=== PATIENT | female | born 1955 | race American Indian/Alaskan Native ===

== ENCOUNTER 2017-07-10 19:26 | Emergency (ER) | payer MEDICAID, MEDICARE ==
[2017-07-10 19:43] VITALS: BP 112/56
[2017-07-10 21:02] LABS: Basophils % (Auto) 0.3 % (0.0-1.8); Eosinophils # (Auto) 0.1 K/mm3 (0.0-0.4); Eosinophils % (Auto) 0.8 % (0.0-4.3); Hematocrit 38.1 % (30.3-42.9); Hemoglobin 12.6 gm/dl (10.1-14.3); Lymphocytes # (Auto) 2.1 K/mm3 (1.2-5.4); Lymphocytes % (Auto) 21.9 % (13.4-35.0); Mean Corpuscular HGB Conc 33 % (30-34); Mean Corpuscular Hemoglobin 30 pg (28-32); Mean Corpuscular Volume 91 fl (79-97); Monocytes # (Auto) 0.7 K/mm3 (0.0-0.8); Monocytes % (Auto) 7.1 % (0.0-7.3); Platelet Count 284 K/mm3 (140-440); Red Blood Count 4.21 M/mm3 (3.65-5.03)
[2017-07-10 21:06] LABS: Bilirubin,Urine NEG (Negative); Blood,Urine NEG (Negative); Color,Urine Yellow (Yellow); Protein,Urine <15 mg/dL mg/dL (Negative); Urobilinogen,Urine < 2.0 mg/dL (<2.0)
[2017-07-10 21:14] LABS: Amphetamine Screen,Urine PRESUMPTIVE NEGATIVE; Benzodiazepines Screen,Urine PRESUMPTIVE NEGATIVE; Cannabinoid Screen,Urine PRESUMPTIVE NEGATIVE; Cocaine Screen,Urine PRESUMPTIVE NEGATIVE; Methadone Screen,Urine PRESUMPTIVE NEGATIVE; Opiate Screen,Urine PRESUMPTIVE NEGATIVE
[2017-07-10 21:20] LABS: Albumin 4.1 g/dL (3.9-5); Calcium 9.5 mg/dL (8.4-10.2)
== END 2017-07-10 22:51 | disposition left against medical advice (07) ==
LOC: ED 19:26
DX: Z76.0 Encounter for issue of repeat prescription (principal)
CPT/HCPCS: 36415; 80053; 80178; 80307; 81001; 84443; 85025; G0480; 80320

== ENCOUNTER 2017-07-28 14:09 | Observation (INO) | payer MEDICARE ==
[2017-07-28 14:38] LABS: Hematocrit 37.7 % (30.3-42.9); Mean Corpuscular HGB Conc 35 % (30-34); Mean Corpuscular Hemoglobin 31 pg (28-32); Mean Corpuscular Volume 90 fl (79-97); Platelet Count 259 K/mm3 (140-440); Red Blood Count 4.17 M/mm3 (3.65-5.03); Red Cell Distribution Width 15.7 % (13.2-15.2)
[2017-07-28 14:58] LABS: Calcium 9.5 mg/dL (8.4-10.2)
[2017-07-28] MEDS ORDERED: NACL 0.9% 1000 ML 1,000 ML IV ONE (16:50)
--- NOTE | 2017-07-28 18:18 | Cat Scan Report ---
FINAL REPORT PROCEDURE: CT HEAD/BRAIN WO CON TECHNIQUE: Computerized tomography of the head was performed without contrast material. HISTORY: syncope COMPARISON: No prior studies are available for comparison. FINDINGS: No CT evidence of intracranial mass, hemorrhage, acute territorial infarction, or hydrocephalus. The intracranial arteries are symmetric in density. Calvarium is intact. Visualized paranasal sinuses and mastoids are aerated. IMPRESSION: No CT evidence of acute abnormality
[2017-07-28 20:02] LABS: Bacteria,Urine 2+ /HPF (Negative); Bilirubin,Urine NEG (Negative); Blood,Urine NEG (Negative); Color,Urine Yellow (Yellow); Hyaline Casts,Urine 6 /LPF; Mucus,Urine FEW /HPF; Protein,Urine <15 mg/dL mg/dL (Negative); Urobilinogen,Urine < 2.0 mg/dL (<2.0)
[2017-07-28 20:28] LABS: Amphetamine Screen,Urine PRESUMPTIVE NEGATIVE; Benzodiazepines Screen,Urine PRESUMPTIVE NEGATIVE; Cannabinoid Screen,Urine PRESUMPTIVE NEGATIVE; Cocaine Screen,Urine PRESUMPTIVE NEGATIVE; Methadone Screen,Urine PRESUMPTIVE NEGATIVE; Opiate Screen,Urine PRESUMPTIVE NEGATIVE
--- NOTE | 2017-07-28 20:45 | Emergency Department Report ---
ED Syncope HPI - General Chief Complaint: Syncope Stated Complaint: SYNCOPE Time Seen by Provider: 07/28/17 16:26 Source: patient Exam Limitations: no limitations - History of Present Illness Initial Comments: 61-year-old female with a past medical history diabetes, hypertension, anxiety, schizophrenia, and bipolar disorder presents to the hospital complaints of syncopal episode prior to arrival. Patient states she was hungry and did not eat all day. She was in [facility] about to get a meal when she woke up with bystanders surrounding her. She denies any preceding symptoms. She denies headache, blurred vision, chest pain, shortness of breath, abdominal pain, melena, hematochezia, diarrhea, fever, shortness of breath. Accu-Chek was and 112 as per EMS on the scene. Patient denies any symptoms currently. - Related Data Allergies/Adverse Reactions: Allergies No Known Allergies Allergy (Unverified 07/10/17 19:38) ED Review of Systems ROS: Stated complaint: SYNCOPE Other details as noted in HPI Comment: All other systems reviewed and negative ED Past Medical Hx - Past Medical History Previous Medical History?: Yes Hx Hypertension: Yes Hx Diabetes: Yes Hx Psychiatric Treatment: Yes (anxiety, schizophrenia, bipolar) - Surgical History Past Surgical History?: Yes Additional Surgical History: Hysterectomy - Social History Smoking Status: Never Smoker Substance Use Type: None ED Physical Exam - General Limitations: No Limitations - Other Other exam information: General: No limitations, patient is alert in no acute distress Head exam: Atraumatic, normocephalic Eyes exam: Normal appearance, pupils equal reactive to light, extraocular movements intact ENT: Moist mucous membrane, normal oropharynx Neck exam: Normal inspection, full range of motion, no meningismus nontender Respiratory exam: Clear to auscultation bilateral, no wheezes, rales, crackles Cardiovascular: Normal rate and rhythm, normal heart sounds Abdomen: Soft, nondistended, and nontender, with normal bowel sounds, no rebound, or guarding Extremity: Full range of motion normal inspection no deformity Back: Normal Inspection, full range of motion, no tenderness Neurologic: Alert, oriented x3, cranial nerves intact, no motor or sensory deficit, NIH stroke scale 0 Psychiatric: normal affect, normal mood Skin: Warm, dry, intact ED Course Vital Signs 07/28/17 07/28/17 07/28/17 14:10 16:39 16:45 Temperature 98.6 F Pulse Rate 46 L Respiratory 16 14 19 Rate Blood Pressure 111/57 O2 Sat by Pulse 98 99 100 Oximetry 07/28/17 07/28/17 07/28/17 17:00 17:15 17:31 Temperature Pulse Rate 49 L 48 L 54 L Respiratory 8 L 10 L 17 Rate Blood Pressure 131/52 131/52 147/61 O2 Sat by Pulse 100 100 100 Oximetry 07/28/17 07/28/17 07/28/17 17:45 18:01 18:15 Temperature Pulse Rate 53 L 59 L Respiratory 15 19 Rate Blood Pressure 121/47 110/77 110/77 O2 Sat by Pulse 100 100 100 Oximetry 07/28/17 07/28/17 07/28/17 18:31 18:45 19:01 Temperature Pulse Rate 52 L 52 L 51 L Respiratory 15 12 9 L Rate Blood Pressure 110/77 110/77 110/77 O2 Sat by Pulse 100 100 100 Oximetry - Reevaluation(s) Reevaluation #1: 07/28/17 20:48 Orthostatics were positive with heart rate increased by 20 points with standing and patient received 1 L normal saline ED Medical Decision Making - Lab Data Result diagrams: 07/28/17 14:26 07/28/17 14:26 Lab Results 07/28/17 07/28/17 07/28/17 Range/Units 14:26 14:26 14:26 WBC 9.0 (4.5-11.0) K/mm3 RBC 4.17 (3.65-5.03) M/mm3 Hgb 13.0 (10.1-14.3) gm/dl Hct 37.7 (30.3-42.9) % MCV 90 (79-97) fl MCH 31 (28-32) pg MCHC 35 H (30-34) % RDW 15.7 H (13.2-15.2) % Plt Count 259 (140-440) K/mm3 Sodium 135 L (137-145) mmol/L Potassium 5.3 H (3.6-5.0) mmol/L Chloride 100.1 (98-107) mmol/L Carbon Dioxide 18 L (22-30) mmol/L Anion Gap 22 mmol/L BUN 16 (7-17) mg/dL Creatinine 1.3 H (0.7-1.2) mg/dL Estimated GFR 51 ml/min BUN/Creatinine Ratio 12 % Glucose 109 H (65-100) mg/dL Calcium 9.5 (8.4-10.2) mg/dL Troponin T (0.00-0.029) ng/mL Urine Color (Yellow) Urine Turbidity (Clear) Urine pH (5.0-7.0) Ur Specific [place] (1.003-1.030) Urine Protein (Negative) mg/dL Urine Glucose (UA) (Negative) mg/dL Urine Ketones (Negative) mg/dL Urine Blood (Negative) Urine Nitrite (Negative) Urine Bilirubin (Negative) Urine Urobilinogen (<2.0) mg/dL Ur Leukocyte Esterase (Negative) Urine WBC (Auto) (0.0-6.0) /HPF Urine RBC (Auto) (0.0-6.0) /HPF U Epithel Cells (Auto) (0-13.0) /HPF Urine Bacteria (Auto) (Negative) /HPF Hyaline Casts /LPF Urine Mucus /HPF Urine Opiates Screen Urine Methadone Screen Ur Barbiturates Screen Ur Phencyclidine Scrn Ur Amphetamines Screen U Benzodiazepines Scrn [place] 0.4 (0.0-1.2) mmol/L Urine Cocaine Screen U Marijuana (THC) Screen Drugs of Abuse Note 07/28/17 07/28/17 07/28/17 Range/Units 14:26 Unknown Unknown WBC (4.5-11.0) K/mm3 RBC (3.65-5.03) M/mm3 Hgb (10.1-14.3) gm/dl Hct (30.3-42.9) % MCV (79-97) fl MCH (28-32) pg MCHC (30-34) % RDW (13.2-15.2) % Plt Count (140-440) K/mm3 Sodium (137-145) mmol/L Potassium (3.6-5.0) mmol/L Chloride (98-107) mmol/L Carbon Dioxide (22-30) mmol/L Anion Gap mmol/L BUN (7-17) mg/dL Creatinine (0.7-1.2) mg/dL Estimated GFR ml/min BUN/Creatinine Ratio % Glucose (65-100) mg/dL Calcium (8.4-10.2) mg/dL Troponin T < 0.010 (0.00-0.029) ng/mL Urine Color Yellow (Yellow) Urine Turbidity Clear (Clear) Urine pH 6.0 (5.0-7.0) Ur Specific [place] 1.012 (1.003-1.030) Urine Protein <15 mg/dl (Negative) mg/dL Urine Glucose (UA) Neg (Negative) mg/dL Urine Ketones Tr (Negative) mg/dL Urine Blood Neg (Negative) Urine Nitrite Neg (Negative) Urine Bilirubin Neg (Negative) Urine Urobilinogen < 2.0 (<2.0) mg/dL Ur Leukocyte Esterase Tr (Negative) Urine WBC (Auto) 12.0 H (0.0-6.0) /HPF Urine RBC (Auto) 3.0 (0.0-6.0) /HPF U Epithel Cells (Auto) 3.0 (0-13.0) /HPF Urine Bacteria (Auto) 2+ (Negative) /HPF Hyaline Casts 6 /LPF Urine Mucus Few /HPF Urine Opiates Screen Presumptive negative Urine Methadone Screen Presumptive negative Ur Barbiturates Screen Presumptive negative Ur Phencyclidine Scrn Presumptive negative Ur Amphetamines Screen Presumptive negative U Benzodiazepines Scrn Presumptive negative [place] (0.0-1.2) mmol/L Urine Cocaine Screen Presumptive negative U Marijuana (THC) Screen Presumptive negative Drugs of Abuse Note Disclamer - EKG Data -: EKG Interpreted by Me EKG shows normal: sinus rhythm, axis (qrs 53), QRS complexes (84), ST-T waves ( no stemi/t inv) Rate: bradycardia (47) - Radiology Data Radiology results: report reviewed CT head: No acute findings - Medical Decision Making Syncope Mild orthostasis Patient received 1 L normal saline Resting bradycardia Given history and cardiac risk factors patient be admitted to the hospital for further evaluation - Differential Diagnosis vasovagal, dehydration, arrhythmia, intracranial abnormality Critical Care Time: No Critical care attestation.: If time is entered above; I have spent that time in minutes in the direct care of this critically ill patient, excluding procedure time. ED Disposition Clinical Impression: Syncope, Diabetes, Schizophrenia, Bipolar disorder Disposition: OP ADMIT IP TO THIS HOSP Is pt being admited?: Yes Condition: Stable Time of Disposition: 20:50 (Hospitalist/Neelima) - Assessment Assessment Interval: Baseline - Level of Consciousness 1a. Level of Consciousness: alert - LOC Questions 1b. LOC Questions: answers correctly - LOC Command 1c. LOC Commands: performs tasks correctly - Best Gaze 2. Best Gaze: normal - Visual 3. Visual: no visual loss - Facial Palsy 4. Facial Palsy: normal symmetrical movement - Motor Arm 5b. Motor Arm Right: no drift 5a. Motor Arm Left: no drift - Motor Leg 6a. Motor Leg Left: no drift 6b. Motor Leg Right: no drift - Limb Ataxia 7. Limb Ataxia: absent - Sensory 8. Sensory: normal - Best Language 9. Best Language: no aphasia - Dysarthria 10. Dysarthria: normal - Extinction and Inattention 11. Extinction/Inattention: no abnormality - Scoring Total Score: 0 Stroke Severity: No Stroke Symptoms
[2017-07-28] MEDS ORDERED: ZOFRAN IV PRN (23:01)
[2017-07-28] MEDS ORDERED: SODIUM CHLORIDE FLUSH SYRINGE 10 ML IV PRN (23:01)
[2017-07-28] MEDS ORDERED: D50W (25GM) Syringe IV PRN (23:01)
[2017-07-28] MEDS ORDERED: TYLENOL PO PRN (23:01)
--- NOTE | 2017-07-28 23:08 | History and Physical Report ---
History of Present Illness Date of examination: 07/28/17 History of present illness: Reason 11-year-old history of hypertension, diabetes, schizophrenia, anxiety, bipolar comes emergency room because she was in [facility] and she had a syncopal episode, it's unclear how long she passed out for. Patient stated that she had not eaten anything all day and around noontime she went to [facility] to get something to eat. Blood sugar on scene was normal Review of systems Constitutional: no weight loss, chills Ears, eyes, nose, mouth and throat: no nasal congestion, no nasal discharge, no sinus pressure, no vision change, no red eye. Neck: No neck pain or rigidity. Cardiovascular: no chest pain, palpitations Respiratory: No cough, shortness of breath Gastrointestinal: no abdominal pain, hematochezia Genitourinary : no dysuria, frequency , no hematuria Musculoskeletal: no joint swelling or muscle ache Integumentary: no rash, no pruritis Neurological: no parathesias, no numbness, no focal weakness Endocrine: no cold or heat intolerance, no polyuria or polydipsia Hematologic/Lymphatic: no easy bruising, no easy bleeding, no gland swelling Allergic/Immunologic: no urticaria, no angioedema. PAST MEDICAL HISTORY: hypertension, diabetes, schizophrenia, anxiety, bipolar PAST SURGICAL HISTORY: Hernia repair, hysterectomy SOCIAL HISTORY: Denies alcohol, tobacco, drugs FAMILY HISTORY: Hypertension Medications and Allergies Allergies Allergy/AdvReac Type Severity Reaction Status Date / Time No Known Allergies Allergy Unverified 07/10/17 19:38 Exam - Physical Exam Narrative exam: Gen. appearance: Patient lying in bed, no apparent distress HEENT: Normocephalic, atraumatic, pupils equally round and reactive to light, extraocular movement intact, and no sclericterus,. No JVD or thyromegaly or nodule,neck supple, no carotid bruit ,mucous membranes moist, no exudate or erythema Heart: S1, S2, regular rate and rhythm Lungs: Clear to auscultation bilaterally, breathing comfortable Abdomen: Positive bowel sounds, nontender, nondistended, no organomegaly Extremity: No edema, cyanosis, clubbing Skin: No rash, nodules, warm, dry Neuro: Oriented 3, cranial nerves II-12 intact, speech is fluent, motor and sensory intact - Constitutional Vitals: Temp Pulse Resp BP Pulse Ox 98.6 F 57 L 11 L 118/46 100 07/28/17 14:10 07/28/17 22:45 07/28/17 22:45 07/28/17 22:45 07/28/17 22:45 Results - Labs CBC & Chem 7: 07/28/17 14:26 07/28/17 14:26 Labs: Abnormal lab results 07/28/17 07/28/17 07/28/17 Range/Units 14:26 14:26 Unknown MCHC 35 H (30-34) % RDW 15.7 H (13.2-15.2) % Sodium 135 L (137-145) mmol/L Potassium 5.3 H (3.6-5.0) mmol/L Carbon Dioxide 18 L (22-30) mmol/L Creatinine 1.3 H (0.7-1.2) mg/dL Glucose 109 H (65-100) mg/dL Urine WBC (Auto) 12.0 H (0.0-6.0) /HPF - Imaging and Cardiology EKG: image reviewed CT Scan - head: report reviewed Assessment and Plan Assessment Syncopal secondary to prolonged fasting Dehydration UTI hypertension diabetes schizophrenia anxiety bipolar Plan Admit medicine Check cardiac enzymes, orthostatics Start IV fluids, appropriate outpatient medications DVT prophylaxis
[2017-07-29] MEDS ORDERED: ROCEPHIN/NS 1 GM/50 ML 1 GM/50 ML BAG IV SCH (03:27)
[2017-07-29] MEDS ORDERED: D50W (25GM) Syringe IV PRN (03:35)
[2017-07-29] MEDS ORDERED: NACL 0.9% 1000 ML 1,000 ML IV SCH (04:00)
[2017-07-29] MEDS: cefTRIAXone 1 GM in NACL 0.9% 20 ML IV SCH (05:50)
[2017-07-29 09:53] LABS: Basophils % (Auto) 0.3 % (0.0-1.8); Eosinophils # (Auto) 0.1 K/mm3 (0.0-0.4); Eosinophils % (Auto) 0.7 % (0.0-4.3); Hematocrit 35.1 % (30.3-42.9); Hemoglobin 11.3 gm/dl (10.1-14.3); Lymphocytes # (Auto) 2.3 K/mm3 (1.2-5.4); Lymphocytes % (Auto) 23.4 % (13.4-35.0); Mean Corpuscular HGB Conc 32 % (30-34); Mean Corpuscular Hemoglobin 30 pg (28-32); Mean Corpuscular Volume 92 fl (79-97); Monocytes # (Auto) 0.7 K/mm3 (0.0-0.8); Monocytes % (Auto) 7.3 % (0.0-7.3); Platelet Count 271 K/mm3 (140-440); Red Cell Distribution Width 15.8 % (13.2-15.2)
[2017-07-29 10:11] LABS: BUN/Creatinine Ratio 14; Blood Urea Nitrogen 14 mg/dL (7-17); Calcium 9.3 mg/dL (8.4-10.2); Hemolysis Index 8
[2017-07-29] MEDS: LOVENOX SUB-Q SCH (11:10)
[2017-07-29] MEDS: SODIUM CHLORIDE FLUSH SYRINGE 10 ML IV SCH ×2 (11:11→22:59)
--- NOTE | 2017-07-29 21:43 | Progress Note ---
Assessment and Plan Assessment and plan: Patient is a 61 yo woman with a history of dm2, hypertension, schizophrenia and bipolar disorder who presented to ED after syncopal episode at [facility]. She was found to have heart in the 40s. CT head unremarkable, UA indicative of UTI, negative UDS and negative orthostasis. EKG showing sinus bradycardia and no overnight cardiac event. Heart rate is improving. Home medications not available , pt states daughter will bring in her medication this evening. ECHO pending. -Syncopal episode related to bradycardia vs vasovagal vs autonomic dysfunction vs medication related: need home meds, continue telemetry -Bradycardia, possible medication related -Hypertension, borderline low: need home medications -UTI: continue iv rocephin, urine culture not collected -DM type 2: ssi, ada diet -DVT prophylaxis: sq lovenox Disposition: anticipate discharge tomorrow if ECHO ok. History Interval history: Patient was seen and examined. Follow-up on current diagnosis of syncope. Overnight uneventful. Patient denies any chest pain, shortness breath, nausea/ vomiting or severe headaches. Imaging, nursing note, chart, labs and old chart reviewed. Discussed with patient. Hospitalist Physical - Physical exam Narrative exam: GEN: WDWN, NAD, Awake, Alert, Orientated HEENT: NCAT, EOMI, PERRL, OP Clear NECK: supple, no adenopathy, no thyromegaly, no JVD CVS/HEART: Regular, normal S1S2, pulses present bilaterally CHEST/LUNGS: CTA B, Symmetrical chest expansion, good air entry bilaterally GI/Abdomen: soft, NTND, good bowel sounds, no guarding or rebound /Bladder: no suprapubic tenderness, no CVA or paraspinal tenderness EXT/Skin: no c/c/e, no obvious rash MSK: FROM x 4 Neuro: CN 2-12 grossly intact, no new focal deficits Psych: calm - Constitutional Vitals: Temp Pulse Resp BP Pulse Ox 98.8 F 64 20 149/63 99 07/29/17 20:12 07/29/17 20:12 07/29/17 20:12 07/29/17 20:12 07/29/17 20:12 Results - Labs CBC & Chem 7: 07/29/17 09:14 07/29/17 09:14 Labs: Laboratory Last Values WBC 9.8 K/mm3 (4.5-11.0) 07/29/17 09:14 RBC 3.80 M/mm3 (3.65-5.03) 07/29/17 09:14 Hgb 11.3 gm/dl (10.1-14.3) 07/29/17 09:14 Hct 35.1 % (30.3-42.9) 07/29/17 09:14 MCV 92 fl (79-97) 07/29/17 09:14 MCH 30 pg (28-32) 07/29/17 09:14 MCHC 32 % (30-34) 07/29/17 09:14 RDW 15.8 % (13.2-15.2) H 07/29/17 09:14 Plt Count 271 K/mm3 (140-440) 07/29/17 09:14 Lymph % (Auto) 23.4 % (13.4-35.0) 07/29/17 09:14 [place] % (Auto) 7.3 % (0.0-7.3) 07/29/17 09:14 Eos % (Auto) 0.7 % (0.0-4.3) 07/29/17 09:14 Baso % (Auto) 0.3 % (0.0-1.8) 07/29/17 09:14 Lymph # 2.3 K/mm3 (1.2-5.4) 07/29/17 09:14 [place] # 0.7 K/mm3 (0.0-0.8) 07/29/17 09:14 Eos # 0.1 K/mm3 (0.0-0.4) 07/29/17 09:14 Baso # 0.0 K/mm3 (0.0-0.1) 07/29/17 09:14 Seg Neutrophils % 68.3 % (40.0-70.0) 07/29/17 09:14 Seg Neutrophils # 6.7 K/mm3 (1.8-7.7) 07/29/17 09:14 D-Dimer 139.40 ng/mlDDU (0-234) 07/28/17 23:21 Sodium 141 mmol/L (137-145) 07/29/17 09:14 Potassium 5.0 mmol/L (3.6-5.0) 07/29/17 09:14 Chloride 105.1 mmol/L (98-107) 07/29/17 09:14 Carbon Dioxide 21 mmol/L (22-30) L 07/29/17 09:14 Anion Gap 20 mmol/L 07/29/17 09:14 BUN 14 mg/dL (7-17) 07/29/17 09:14 Creatinine 1.0 mg/dL (0.7-1.2) 07/29/17 09:14 Estimated GFR > 60 ml/min 07/29/17 09:14 BUN/Creatinine Ratio 14 % 07/29/17 09:14 Glucose 126 mg/dL (65-100) H 07/29/17 09:14 POC Glucose 128 (70-105) H 07/29/17 15:46 Calcium 9.3 mg/dL (8.4-10.2) 07/29/17 09:14 Troponin T < 0.010 ng/mL (0.00-0.029) 07/28/17 14:26 Urine Color Yellow (Yellow) 07/28/17 Unknown Urine Turbidity Clear (Clear) 07/28/17 Unknown Urine pH 6.0 (5.0-7.0) 07/28/17 Unknown Ur Specific [place] 1.012 (1.003-1.030) 07/28/17 Unknown Urine Protein <15 mg/dl mg/dL (Negative) 07/28/17 Unknown Urine Glucose (UA) Neg mg/dL (Negative) 07/28/17 Unknown Urine Ketones Tr mg/dL (Negative) 07/28/17 Unknown Urine Blood Neg (Negative) 07/28/17 Unknown Urine Nitrite Neg (Negative) 07/28/17 Unknown Urine Bilirubin Neg (Negative) 07/28/17 Unknown Urine Urobilinogen < 2.0 mg/dL (<2.0) 07/28/17 Unknown Ur Leukocyte Esterase Tr (Negative) 07/28/17 Unknown Urine WBC (Auto) 12.0 /HPF (0.0-6.0) H 07/28/17 Unknown Urine RBC (Auto) 3.0 /HPF (0.0-6.0) 07/28/17 Unknown U Epithel Cells (Auto) 3.0 /HPF (0-13.0) 07/28/17 Unknown Urine Bacteria (Auto) 2+ /HPF (Negative) 07/28/17 Unknown Hyaline Casts 6 /LPF 07/28/17 Unknown Urine Mucus Few /HPF 07/28/17 Unknown Urine Opiates Screen Presumptive negative 07/28/17 Unknown Urine Methadone Screen Presumptive negative 07/28/17 Unknown Ur Barbiturates Screen Presumptive negative 07/28/17 Unknown Ur Phencyclidine Scrn Presumptive negative 07/28/17 Unknown Ur Amphetamines Screen Presumptive negative 07/28/17 Unknown U Benzodiazepines Scrn Presumptive negative 07/28/17 Unknown [place] 0.4 mmol/L (0.0-1.2) 07/28/17 14:26 Urine Cocaine Screen Presumptive negative 07/28/17 Unknown U Marijuana (THC) Screen Presumptive negative 07/28/17 Unknown Drugs of Abuse Note Disclamer 07/28/17 Unknown
[2017-07-29] MEDS ORDERED: RisperDAL PO SCH ×2 (22:00)
[2017-07-29] MEDS ORDERED: LITHOBID ER PO SCH (22:00)
[2017-07-29] MEDS ORDERED: ZOLOFT PO SCH (22:00)
[2017-07-29] MEDS ORDERED: PRAVACHOL PO SCH (22:00)
[2017-07-29] MEDS: XANAX PO SCH (22:58)
[2017-07-29] MEDS: GLUCOPHAGE PO SCH (23:34)
[2017-07-30 06:20] LABS: Hematocrit 31.9 % (30.3-42.9); Hemoglobin 10.9 gm/dl (10.1-14.3); Mean Corpuscular HGB Conc 34 % (30-34); Mean Corpuscular Hemoglobin 31 pg (28-32); Mean Corpuscular Volume 92 fl (79-97); Platelet Count 223 K/mm3 (140-440); Red Blood Count 3.48 M/mm3 (3.65-5.03); Red Cell Distribution Width 15.9 % (13.2-15.2)
[2017-07-30 06:43] LABS: BUN/Creatinine Ratio 12; Blood Urea Nitrogen 11 mg/dL (7-17); Calcium 8.6 mg/dL (8.4-10.2); Hemolysis Index 7
[2017-07-30] MEDS ORDERED: EFFEXOR XR PO SCH (10:00)
[2017-07-30] MEDS: cefTRIAXone 1 GM in NACL 0.9% 20 ML IV SCH (12:31)
[2017-07-30] MEDS: GLUCOPHAGE PO SCH (12:36)
[2017-07-30] MEDS: XANAX PO SCH (12:36)
[2017-07-30] MEDS: LOVENOX SUB-Q SCH (12:37)
[2017-07-30] MEDS: SODIUM CHLORIDE FLUSH SYRINGE 10 ML IV SCH (12:38)
--- NOTE | 2017-07-30 15:17 | Discharge Summary ---
Providers - Providers Date of Admission: 07/28/17 23:01 Date of discharge: 07/30/17 Attending physician: MARTELL GUSMAN Primary care physician: BATTERY TESTER Hospitalization Condition: Stable Hospital course: Patient is a 61 yo woman with a history of dm2, hypertension, schizophrenia and bipolar disorder who presented to ED after syncopal episode at [facility]. She was found to have heart in the 40s. CT head unremarkable, UA indicative of UTI, negative UDS and negative orthostasis. EKG showing sinus bradycardia and no overnight cardiac event. Heart rate is improving. Home medications not available , pt states daughter will bring in her medication this evening. ECHO pending. -Syncopal episode related to bradycardia due to medication related: need home meds, continue telemetry -Bradycardia, possible medication related: stopped Atenolol ANETTE, vasomotor nephropaty poa, cr was 1.3 now 1.0: hold lisinopril, give ivf, repeat bmp am -Hypertension, borderline low: need home medications -UTI: continue iv rocephin, urine culture not collected -DM type 2: ssi, ada diet -DVT prophylaxis: sq lovenox Disposition: anticipate discharge if ECHO ok, still pending, I have spoken with Cardiology, [facility] Disposition: DC- TO HOME OR SELFCARE Time spent for discharge: 34 min Core Measure Documentation - Palliative Care Palliative Care/ Comfort Measures: Not Applicable - Core Measures Any of the following diagnoses?: none - VTE Discharge Requirements Deep Vein Thrombosis/Pulmonary Embolism Present on Admission: No Has pt received <5 days of overlap therapy or INR<2.0: No Anticoagulant overlap therapy prescribed at discharge: No Contraindication No Overlap Therapy order at DC: Not Indicated Exam - Physical Exam Narrative exam: GEN: WDWN, NAD, Awake, Alert, Orientated HEENT: NCAT, EOMI, PERRL, OP Clear NECK: supple, no adenopathy, no thyromegaly, no JVD CVS/HEART: Regular, normal S1S2, pulses present bilaterally CHEST/LUNGS: CTA B, Symmetrical chest expansion, good air entry bilaterally GI/Abdomen: soft, NTND, good bowel sounds, no guarding or rebound /Bladder: no suprapubic tenderness, no CVA or paraspinal tenderness EXT/Skin: no c/c/e, no obvious rash MSK: FROM x 4 Neuro: CN 2-12 grossly intact, no new focal deficits Psych: calm - Constitutional Vitals: Temp Pulse Resp BP Pulse Ox 97.7 F 71 16 141/74 99 07/30/17 08:47 07/30/17 08:47 07/30/17 08:47 07/30/17 08:47 07/30/17 08:47 Plan Activity: no driving until cleared by PCP, other (no strenous activity) Diet: low salt, diabetic Special Instructions: record daily BP diary, record blood sugar diary Forms: Accompanied Note Prescriptions: Ciprofloxacin HCl [Ciprofloxacin TAB] 500 mg PO BID 3 Days tablet
--- NOTE | 2017-07-30 15:18 | Progress Note ---
Assessment and Plan Assessment and plan: Patient is a 61 yo woman with a history of dm2, hypertension, schizophrenia and bipolar disorder who presented to ED after syncopal episode at [facility]. She was found to have heart in the 40s. CT head unremarkable, UA indicative of UTI, negative UDS and negative orthostasis. EKG showing sinus bradycardia and no overnight cardiac event. Heart rate is improving. Home medications not available , pt states daughter will bring in her medication this evening. ECHO pending. -Syncopal episode related to bradycardia due to medication related: need home meds, continue telemetry -Bradycardia, possible medication related: stopped Atenolol ANETTE, vasomotor nephropaty poa, cr was 1.3 now 1.0: hold lisinopril, give ivf, repeat bmp am -Hypertension, borderline low: need home medications -UTI: continue iv rocephin, urine culture not collected -DM type 2: ssi, ada diet -DVT prophylaxis: sq lovenox Disposition: anticipate discharge if ECHO ok, still pending, I have spoken with Cardiology, [facility] History Interval history: Patient was seen and examined. Follow-up on current diagnosis of syncope. Overnight uneventful. Patient denies any chest pain, shortness breath, nausea/ vomiting or severe headaches. Imaging, nursing note, chart, labs and old chart reviewed. Discussed with patient. Hospitalist Physical - Physical exam Narrative exam: GEN: WDWN, NAD, Awake, Alert, Orientated HEENT: NCAT, EOMI, PERRL, OP Clear NECK: supple, no adenopathy, no thyromegaly, no JVD CVS/HEART: Regular, normal S1S2, pulses present bilaterally CHEST/LUNGS: CTA B, Symmetrical chest expansion, good air entry bilaterally GI/Abdomen: soft, NTND, good bowel sounds, no guarding or rebound /Bladder: no suprapubic tenderness, no CVA or paraspinal tenderness EXT/Skin: no c/c/e, no obvious rash MSK: FROM x 4 Neuro: CN 2-12 grossly intact, no new focal deficits Psych: calm - Constitutional Vitals: Temp Pulse Resp BP Pulse Ox 97.7 F 71 16 141/74 99 07/30/17 08:47 07/30/17 08:47 07/30/17 08:47 07/30/17 08:47 07/30/17 08:47 Results - Labs CBC & Chem 7: 07/30/17 05:33 07/30/17 05:33 Labs: Laboratory Last Values WBC 7.3 K/mm3 (4.5-11.0) 07/30/17 05:33 RBC 3.48 M/mm3 (3.65-5.03) L 07/30/17 05:33 Hgb 10.9 gm/dl (10.1-14.3) 07/30/17 05:33 Hct 31.9 % (30.3-42.9) 07/30/17 05:33 MCV 92 fl (79-97) 07/30/17 05:33 MCH 31 pg (28-32) 07/30/17 05:33 MCHC 34 % (30-34) 07/30/17 05:33 RDW 15.9 % (13.2-15.2) H 07/30/17 05:33 Plt Count 223 K/mm3 (140-440) 07/30/17 05:33 Lymph % (Auto) 23.4 % (13.4-35.0) 07/29/17 09:14 [place] % (Auto) 7.3 % (0.0-7.3) 07/29/17 09:14 Eos % (Auto) 0.7 % (0.0-4.3) 07/29/17 09:14 Baso % (Auto) 0.3 % (0.0-1.8) 07/29/17 09:14 Lymph # 2.3 K/mm3 (1.2-5.4) 07/29/17 09:14 [place] # 0.7 K/mm3 (0.0-0.8) 07/29/17 09:14 Eos # 0.1 K/mm3 (0.0-0.4) 07/29/17 09:14 Baso # 0.0 K/mm3 (0.0-0.1) 07/29/17 09:14 Seg Neutrophils % 68.3 % (40.0-70.0) 07/29/17 09:14 Seg Neutrophils # 6.7 K/mm3 (1.8-7.7) 07/29/17 09:14 D-Dimer 139.40 ng/mlDDU (0-234) 07/28/17 23:21 Sodium 143 mmol/L (137-145) 07/30/17 05:33 Potassium 4.8 mmol/L (3.6-5.0) 07/30/17 05:33 Chloride 108.9 mmol/L (98-107) H 07/30/17 05:33 Carbon Dioxide 20 mmol/L (22-30) L 07/30/17 05:33 Anion Gap 19 mmol/L 07/30/17 05:33 BUN 11 mg/dL (7-17) 07/30/17 05:33 Creatinine 0.9 mg/dL (0.7-1.2) 07/30/17 05:33 Estimated GFR > 60 ml/min 07/30/17 05:33 BUN/Creatinine Ratio 12 % 07/30/17 05:33 Glucose 99 mg/dL (65-100) 07/30/17 05:33 POC Glucose 100 (70-105) 07/29/17 22:06 Calcium 8.6 mg/dL (8.4-10.2) 07/30/17 05:33 Troponin T < 0.010 ng/mL (0.00-0.029) 07/28/17 14:26 Urine Color Yellow (Yellow) 07/28/17 Unknown Urine Turbidity Clear (Clear) 07/28/17 Unknown Urine pH 6.0 (5.0-7.0) 07/28/17 Unknown Ur Specific [place] 1.012 (1.003-1.030) 07/28/17 Unknown Urine Protein <15 mg/dl mg/dL (Negative) 07/28/17 Unknown Urine Glucose (UA) Neg mg/dL (Negative) 07/28/17 Unknown Urine Ketones Tr mg/dL (Negative) 07/28/17 Unknown Urine Blood Neg (Negative) 07/28/17 Unknown Urine Nitrite Neg (Negative) 07/28/17 Unknown Urine Bilirubin Neg (Negative) 07/28/17 Unknown Urine Urobilinogen < 2.0 mg/dL (<2.0) 07/28/17 Unknown Ur Leukocyte Esterase Tr (Negative) 07/28/17 Unknown Urine WBC (Auto) 12.0 /HPF (0.0-6.0) H 07/28/17 Unknown Urine RBC (Auto) 3.0 /HPF (0.0-6.0) 07/28/17 Unknown U Epithel Cells (Auto) 3.0 /HPF (0-13.0) 07/28/17 Unknown Urine Bacteria (Auto) 2+ /HPF (Negative) 07/28/17 Unknown Hyaline Casts 6 /LPF 07/28/17 Unknown Urine Mucus Few /HPF 07/28/17 Unknown Urine Opiates Screen Presumptive negative 07/28/17 Unknown Urine Methadone Screen Presumptive negative 07/28/17 Unknown Ur Barbiturates Screen Presumptive negative 07/28/17 Unknown Ur Phencyclidine Scrn Presumptive negative 07/28/17 Unknown Ur Amphetamines Screen Presumptive negative 07/28/17 Unknown U Benzodiazepines Scrn Presumptive negative 07/28/17 Unknown [place] 0.4 mmol/L (0.0-1.2) 07/28/17 14:26 Urine Cocaine Screen Presumptive negative 07/28/17 Unknown U Marijuana (THC) Screen Presumptive negative 07/28/17 Unknown Drugs of Abuse Note Disclamer 07/28/17 Unknown
[2017-07-30 17:14] VITALS: BP 133/69
== END 2017-07-30 19:17 | disposition home or self-care (01) ==
LOC: ED 14:09 → 4A 23:01 → EDBD 23:01 → 4A 07-29 08:20
PROVIDERS: ADMIT Internal Medicine; ATTEND Internal Medicine
DX: R55 Syncope and collapse (principal); E86.0 Dehydration; E11.9 Type 2 diabetes mellitus without complications; F20.9 Schizophrenia, unspecified; N39.0 Urinary tract infection, site not specified; F41.9 Anxiety disorder, unspecified; I10 Essential (primary) hypertension; F31.9 Bipolar disorder, unspecified; Z82.49 Family history of ischemic heart disease and other diseases of the circulatory system
CPT/HCPCS: 36415; 70450; 80048; 80178; 80307; 81001; 82962; 84484; 85025; 85027; 85379; 93005; 93010; 93306; 96361; 96372; 96374; 96376; 99285; A9270; G0378; J0696; J1650; J7030